=== PATIENT | female | born 1970 | race Caucasian/White ===

== ENCOUNTER 2021-03-26 05:09 | Inpatient (IN) ==
[2021-03-26 05:16] VITALS: BMI 29.0
--- NOTE | 2021-03-26 05:20 | ED.ABDFE ---
HPI Time Seen Time Seen by Provider: 03/26/21 05:19 HPI Comment HPI Comment: PATIENT IS 50YR OLD FEMALE IN ER WITH ABDOMINAL PAIN, NAUSEA AND VOMITING SINCE 20;00PM LAST NIGHT. NO DIARRHEA OR DYSURIA. DENIES COUGH OR CONGESTION. PAIN IS SHARP, 8/10 AND DIFFUSE BUT WORSE LUQ OF ABDOMEN. DENIES FEVER. Complaint Doctors Chief Complaint Comments: ABDOMINAL PAIN, NAUSEA AND VOMITING SINCE 20:00PM LAST NIGHT. Chief Complaint:: PT STATES HER STOMACH HAS BEEN CRAMPING SINCE ABOUT 8PM LASTNIGHT WITH NO RELIF. PT STATES SHE TOOK PEPTO ABOUT 9 WITH NO HELP. SHE STATES SHE BEEN NAUSEOUS WITH NO VOMITING. Self Treatment fo Chief Complaint: PEPTO COVID-19 Coronavirus risk:travel/contact w/high risk person: No Has patient experienced Coronavirus symptoms: No Reviewed Nurses Notes Review: Yes Source History Provided: Patient Mode of arrival Mode of Arrival: Ambulatory Timing Onset of Chief Complaint: 03/25/21 Came on: Suddenly Duration Since Onset: Constant Duration: Hours Location Location: LUQ and Diffuse Severity Severity: Moderate Quality Quality: Sharp Context History of: None Modifying factors Improving Factors: Lying Still Associated signs and symptoms Associated Signs and Symptoms: Nausea and Vomiting PMH PMH Past Medical History: No Past Surgical History: No Family History History of Family Medical Conditions: Yes Family Medical History: Diabetes Mellitus, Cancer, [place] and Hypertension Social History Does patient currently use any type of tobacco product: No Have you used tobacco products in the last 12 months: No Type of Tobacco Use: None Does any household member use tobacco: No Alcohol Use: None Do you use any recreational Drugs:: No Lives With: Spouse Lives Where: Home Infectious screening In the last 2 months have you had wt loss of >10#?: NO Have you had fever, night sweats or hemotysis?: No Have you traveled outside the country in the last 6 months?: No Isolation: Standard ROS Review of Systems Constitutional: No Symptoms Reported, See HPI, Weakness and Fatigue; negative Fever Eyes: No Symptoms Reported and See HPI ENTM: No Symptoms Reported and See HPI; negative Nose Discharge and Nose Congestion Respiratoy: No Symptoms Reported and See HPI; negative Moist Cough, Short of Breath and Wheezing Cardiovascular: No Symptoms Reported and See HPI; negative Chest Pain and Edema Gastrointestinal/Abdominal: No Symptoms Reported and See HPI Genitourinary: No Symptoms Reported, See HPI and Dysuria; negative Frequency and Hematuria Neurological: See HPI, Headache and Weakness; negative Dizziness Musculoskeletal: No Symptoms Reported and See HPI; negative Back Pain and Muscle Pain Integumentary: No Symptoms Reported and See HPI; negative Change in Color, Rash and Juandice Hematologic/Lymphatic: No Symptoms Reported and See HPI; negative Easy Bruising Endocrine: No Symptoms Reported; negative Increased Thirst and Increased Urine Psychiatric: No Symptoms Reported and See HPI All Other Systems: Reviewed and Negative PE Vital Signs Vitals: Temperature 98.8 F Pulse Rate 103 Respiratory Rate 16 Blood Pressure 125/65 O2 Sat by Pulse Oximetry 99 General Limitations: No Limitations and Language Barrier General Appearance: Alert and In No Apparent Distress Head Head Exam: Normal Inspection Eyes Eye exam: Normal Appearance; negative Scleral Icterus and Conjunctival Injection ENT ENT Exam: Normal Exam, Normal Oropharynx, Normal External Ear Exam and TM's Normal Bilaterally Neck Neck Exam: Normal Inspection and Trachea Midline; negative Tenderness Chest Chest Inspection: Normal Inspection and Symmetric Chest Wall Rise; negative Tenderness Respiratory Respiratory Exam: Normal Lung Sounds Bilat; negative Accessory Muscle Use, Chest Wall Tenderness and Respiratory Distress Respiratory Exam: Bilateral: Clear to Auscultation Cardiovascular Cardiovascular Exam: Regular Rate, Normal Rhythm and Normal Heart Sounds; negative Systolic Murmur and Diastolic Murmur Abdominal Exam Abdominal Exam: Normal Inspection, Normal Bowel Sounds and Tenderness Abdominal Tenderness: LUQ, Diffuse and Moderate Rectal Rectal Exam: Deferred Back Back Exam: Normal Inspection; negative (R) CVA Tenderness and (L) CVA Tenderness Extremeties Extremities Exam: Normal Inspection and Normal Capillary Refill; negative Edema External Exam: Female: Deferred : Speculum Exam (Female): Deferred : Bimanual Exam (female): Deferred Neurologic Neurological Exam: Alert and Oriented X3; negative Motor Sensory Deficit Psychiatric Psychiatric Exam: Normal Affect and Normal Mood Skin Skin Exam: Warm, Dry and Intact MDM Differential Diagnosis Differential Diagnosis- Considerations may include:: Bowel Obstruction, Cholcystitis, Cholelethiasis, Constipation, Diverticular disease, Gastritus/PUD, Gastroenteritis, Inflammatory BD, Pancreatitis, Urinary tract infection and Urolithiasis COURSE Treatment Treatment: SEE ORDERS. NS 1L IV BOLUS, ZOFRAN 4MG IV, DEMOROL 25MG IV, AND PEPCID 20MG IVPB IN ER. Reevaluation 1st: Improved Consultation Consultation Comments: DISCUSSED PATIENT WITH DR. PAZ, SURGEON. HE WILL COME TO ER TO SEE PATIENT. Education/Counseling Education/Counseling: Patient Educated On: Diagnosis ROR Labs Reviewed Result Diagrams: 03/26/21 05:45 03/26/21 05:45 Laboratory: WBC 8.9 X10^3/uL (3.6-10.0) 03/26/21 05:45 RBC 4.38 X10^6/uL (3.5-5.4) 03/26/21 05:45 Hgb 13.5 g/dL (12.0-16.0) 03/26/21 05:45 Hct 37.8 % (36.0-47.0) 03/26/21 05:45 MCV 86.3 fL (80.0-100.0) 03/26/21 05:45 MCH 30.7 pg (27.0-34.0) 03/26/21 05:45 MCHC 35.6 g/dL (33.0-35.0) H 03/26/21 05:45 RDW 13.8 % (11.6-16.5) 03/26/21 05:45 Plt Count 300 X10^3/uL (150.0-450.0) 03/26/21 05:45 MPV 8.4 fL (7.4-11.0) 03/26/21 05:45 Neut % (Auto) 77.0 % (42.0-75.0) H 03/26/21 05:45 Lymph % (Auto) 15.5 % (21.0-51.0) L 03/26/21 05:45 [place] % (Auto) 6.6 % (0.0-13.0) 03/26/21 05:45 Eos % (Auto) 0.4 % (0.9-2.9) L 03/26/21 05:45 Baso % (Auto) 0.5 % (0.2-1.0) 03/26/21 05:45 Neut # (Auto) 6.9 x10^3/uL (2.2-4.8) H 03/26/21 05:45 Lymph # (Auto) 1.4 X10^3/uL (1.3-2.9) 03/26/21 05:45 [place] # (Auto) 0.6 x10^3/uL (0.3-0.8) 03/26/21 05:45 Eos # (Auto) 0.0 x10^3/uL (0.0-0.2) 03/26/21 05:45 Baso # (Auto) 0.0 X10^3/uL (0.0-0.1) 03/26/21 05:45 Absolute Nucleated RBC 0.1 /100WBC 03/26/21 05:45 Sodium 137 mmol/L (136-145) 03/26/21 05:45 Corrected Sodium 137 mmol/L (136-145) 03/26/21 05:45 Potassium 3.5 mmol/L (3.5-5.1) 03/26/21 05:45 Chloride 102 mmol/L (98-107) 03/26/21 05:45 Carbon Dioxide 22.4 mmol/L (21-32) 03/26/21 05:45 BUN 12 mg/dL (7-18) 03/26/21 05:45 Creatinine 0.92 mg/dL (0.55-1.02) 03/26/21 05:45 Est GFR (MDRD) Af Amer > 60 (>60) 03/26/21 05:45 Est GFR (MDRD) Non-Af > 60 (>60) 03/26/21 05:45 Glucose 120 mg/dL (65-99) H 03/26/21 05:45 Calcium 9.5 mg/dL (8.5-10.1) 03/26/21 05:45 Corrected Calcium TNP 03/26/21 05:45 Total Bilirubin 0.30 mg/dL (0.2-1.0) 03/26/21 05:45 AST 13 Units/L (15-37) L 03/26/21 05:45 ALT 30 Units/L (12-78) 03/26/21 05:45 Alkaline Phosphatase 84 Units/L (46-116) 03/26/21 05:45 Total Protein 7.1 g/dL (6.4-8.2) 03/26/21 05:45 Albumin 3.5 g/dL (3.4-5.0) 03/26/21 05:45 Globulin 3.6 g/dL (2.5-4.5) 03/26/21 05:45 Albumin/Globulin Ratio 1.0 Ratio (1.1-2.1) L 03/26/21 05:45 Amylase 46 Units/L (25-115) 03/26/21 05:45 Lipase 66 Units/L (73-393) L 03/26/21 05:45 Specimen Type Clean catch urine 03/26/21 07:16 Urine Color Yellow (YELLOW) 03/26/21 07:16 Urine Appearance Clear (CLEAR) 03/26/21 07:16 Urine pH 7.0 (5.0 - 8.0) 03/26/21 07:16 Ur Specific [place] 1.010 (1.000-1.030) 03/26/21 07:16 Urine Protein Negative (NEGATIVE) 03/26/21 07:16 Urine Glucose (UA) Negative (NEGATIVE) 03/26/21 07:16 Urine Ketones Negative (NEGATIVE) 03/26/21 07:16 Urine Occult Blood Negative (NEGATIVE) 03/26/21 07:16 Urine Nitrite Negative (NEGATIVE) 03/26/21 07:16 Urine Bilirubin Negative (NEGATIVE) 03/26/21 07:16 Urine Urobilinogen Normal (NORMAL) 03/26/21 07:16 Ur Leukocyte Esterase Negative (NEGATIVE) 03/26/21 07:16 Influenza Type A Ag Negative-presumptive (NEGATIVE) 03/26/21 06:04 Influenza Type B Ag Negative-presumptive (NEGATIVE) 03/26/21 06:04 SARS CoV-2 RNA Rapid COLLETTE Negative (NEGATIVE) 03/26/21 06:04 Opioid Opioid Risk Tool Age (Shashi box if 16-45): No Total: 0 Total Score Risk Category: Low Risk Copyright: Frandy LEES predicting aberrant behaviors Diagnosis Discharge Problem: Cecal volvulus Abdominal pain Qualifiers: Abdominal location: generalized Qualified Code(s): R10.84 - Generalized abdominal pain Instructions Forms: Precautions for COVID19 [facility] Patient [facility] Social Distancing
[2021-03-26] MEDS ORDERED: NS 1,000 ML IV 1,000 ML IV ONE (05:23)
[2021-03-26] MEDS ORDERED: ZOFRAN INJ 4 MG VIAL IVP ONE ×2 (05:23→07:19)
[2021-03-26] MEDS ORDERED: PEPCID 20 MG IV PREMIX* 20 MG/50 ML BAG IV ONE (05:23)
[2021-03-26] MEDS ORDERED: DEMEROL INJ IVP ONE (05:23)
[2021-03-26] MEDS ORDERED: NS 1,000 ML IV 1,000 ML ONE (05:32)
[2021-03-26] MEDS ORDERED: DEMEROL INJ ONE (05:32)
[2021-03-26] MEDS ORDERED: PEPCID 20 MG IV PREMIX* 50 ML IV ONE ×2 (05:32→13:21)
[2021-03-26] MEDS ORDERED: ZOFRAN INJ 4 MG VIAL ONE ×4 (05:32→13:41)
[2021-03-26 05:54] LABS: BASOPHILS % (AUTO) 0.5 % (0.2-1.0); EOSINOPHILS % (AUTO) 0.4 % (0.9-2.9); HEMATOCRIT 37.8 % (36.0-47.0); HEMOGLOBIN 13.5 g/dL (12.0-16.0); LYMPHOCYTES # (AUTO) 1.4 X10^3/uL (1.3-2.9); LYMPHOCYTES % (AUTO) 15.5 % (21.0-51.0); MEAN CORPUSCULAR HEMOGLOBIN 30.7 pg (27.0-34.0); MEAN CORPUSCULAR HGB CONC 35.6 g/dL (33.0-35.0); MEAN CORPUSCULAR VOLUME 86.3 fL (80.0-100.0); MEAN PLATELET VOLUME 8.4 fL (7.4-11.0); MONOCYTES # (AUTO) 0.6 x10^3/uL (0.3-0.8); MONOCYTES % (AUTO) 6.6 % (0.0-13.0); NEUTROPHILS # (AUTO) 6.9 x10^3/uL (2.2-4.8); PLATELET COUNT 300 X10^3/uL (150.0-450.0); RED BLOOD COUNT 4.38 X10^6/uL (3.5-5.4); RED CELL DISTRIBUTION WIDTH 13.8 % (11.6-16.5); WHITE BLOOD COUNT 8.9 X10^3/uL (3.6-10.0)
[2021-03-26 06:02] LABS: ALANINE AMINOTRANSFERASE 30 Units/L (12-78); ALBUMIN 3.5 g/dL (3.4-5.0); ALKALINE PHOSPHATASE 84 Units/L (46-116); AMYLASE 46 Units/L (25-115); ASPARTATE AMINO TRANSFERASE 13 Units/L (15-37); BLOOD UREA NITROGEN 12 mg/dL (7-18); CALCIUM 9.5 mg/dL (8.5-10.1); CARBON DIOXIDE 22.4 mmol/L (21-32); CHLORIDE 102 mmol/L (98-107); COR NA(FOR HYPERGLY) 137 mmol/L (136-145); CREATININE 0.92 mg/dL (0.55-1.02); LIPASE 66 Units/L (73-393); SODIUM 137 mmol/L (136-145); TOTAL PROTEIN 7.1 g/dL (6.4-8.2); eGFR NON BLACK RACES > 60 (>60)
[2021-03-26] MEDS ORDERED: NS 100 ML IV 100 ML ONE (06:51)
[2021-03-26] MEDS ORDERED: TORADOL 30 MG VIAL IVP ONE (07:19)
[2021-03-26] MEDS ORDERED: TORADOL 30 MG VIAL ONE (07:24)
[2021-03-26 07:27] LABS: BILIRUBIN,URINE NEGATIVE (NEGATIVE); BLOOD/HEMOGLOBIN,URINE NEGATIVE (NEGATIVE); GLUCOSE, URINE NEGATIVE (NEGATIVE); KETONES,URINE NEGATIVE (NEGATIVE); LEUKOCYTE ESTERASE ,URINE NEGATIVE (NEGATIVE); NITRITES,URINE NEGATIVE (NEGATIVE); PROTEIN,URINE NEGATIVE (NEGATIVE); UROBILINOGEN,URINE NORMAL (NORMAL)
--- NOTE | 2021-03-26 07:32 | CT ---
HISTORYABD PAIN/CRAMPING, NAUSEASTUDYABDOMEN/PELVIS WITH CONCOMPARISONNone.TECHNIQUEMultiple axial images of the abdomen and pelvis were obtained from the lung bases to the pubic symphysis after the administration of IV contrast. Dose reduction techniques including Automated Exposure Control (AEC) and adjustment of mA and kV were utilized.FINDINGSThe lung bases are clear. The heart is normal in size. The liver, gallbladder, spleen, pancreas, adrenal glands, and kidneys have a benign appearance.The urinary bladder appears benign. The uterus is present. No large abnormal pelvic mass. Moderate fluid within the endometrial canal is indeterminate given patient age. Enlarged cecum is flipped into the central abdomen with air stool level.The appendix is not well visualized but there is no significant inflammatory change in its expected location. The majority of the colon is decompressed. There is [id number] stool in the distal colon and rectum. Small bowel feces sign of the terminal ileum. Nonobstructive small bowel gas pattern of the remainder of the small bowel. Non-atherosclerotic normal caliber abdominal aorta. The portal vein is patent. No pathologic adenopathy. No free air, free fluid or collection. No acute osseous abnormality.IMPRESSIONFindings consistent with cecal volvulus. Recommend surgical consultation.Small bowel feces sign of the terminal ileum consistent with delayed bowel transit.Moderate fluid within the endometrium is nonspecific given patient age. Correlate for menopausal state and consider ultrasound as clinically warranted.Electronically signed by: Herberth Truong (Mar 26, 2021 07:31:22)
[2021-03-26 07:33] LABS: APPEARANCE,URINE CLEAR (CLEAR); COLOR,URINE YELLOW (YELLOW)
[2021-03-26] MEDS ORDERED: LEVAQUIN PREMIX IV 750 MG 750 MG/150 ML BAG IV SCH (09:00)
[2021-03-26] MEDS ORDERED: ZOFRAN INJ 4 MG VIAL IVP SCH (09:00)
[2021-03-26] MEDS ORDERED: LEVAQUIN PREMIX IV 750 MG 750 MG/150 ML BAG IV ONE (09:16)
[2021-03-26] MEDS ORDERED: D5 NS 1,000 ML IV 1,000 ML IV ONE (09:16)
[2021-03-26] MEDS ORDERED: FLAGYL IV PREMIX 500 MG BAG 500 MG/100 ML BAG IV ONE (09:16)
[2021-03-26] MEDS ORDERED: PROTONIX INJ 40 MG VIAL ONE (09:16)
--- NOTE | 2021-03-26 09:21 | RAD ---
HISTORYPRE OP FOR COLONIC VOLVULUS SURGERYSTUDYCHEST, 1 VIEWCOMPARISONNoneTECHNIQUEAP view of the chestFINDINGSThe cardiac and mediastinal contours are within normal limits. The lungs are clear without focal consolidation or segmental collapse. No pleural effusion or pneumothorax.IMPRESSIONNo acute pulmonary process.Electronically signed by: Herberth Truong (Mar 26, 2021 09:20:12)
[2021-03-26] MEDS: D5 1/2 NS 1,000 ML 1,000 ML IV SCH ×2 (09:58→17:30)
[2021-03-26] MEDS: PROTONIX INJ 40 MG VIAL IVP SCH ×2 (09:58→21:43)
[2021-03-26] MEDS: FLAGYL IV PREMIX 500 MG BAG 500 MG/100 ML BAG IV SCH ×2 (09:58→21:52)
[2021-03-26] MEDS ORDERED: DILAUDID INJ ONE ×2 (10:56→13:20)
[2021-03-26] MEDS: DILAUDID INJ IVP PRN ×2 (11:15→20:40)
[2021-03-26] MEDS ORDERED: POLYMYXIN B SULFATE ONE (13:07)
[2021-03-26] MEDS ORDERED: DECADRON INJ ONE (13:20)
[2021-03-26] MEDS ORDERED: BRIDION ONE (13:20)
[2021-03-26] MEDS ORDERED: LR 1,000 ML IV 1,000 ML IV ONE (13:21)
[2021-03-26] MEDS ORDERED: FENTANYL VIAL INJ 100 mcg ONE (13:21)
[2021-03-26] MEDS ORDERED: ZEMURON 50 MG VIAL ONE (13:21)
[2021-03-26] MEDS ORDERED: OFIRMEV IV 1000 MG VIAL 1,000 MG/100 ML VIAL IV ONE (13:22)
[2021-03-26 13:28] LABS: SERUM PREGNANCY TEST, QUAL NEGATIVE <10 mIU/mL
[2021-03-26] MEDS ORDERED: KETALAR ONE (13:41)
[2021-03-26] MEDS ORDERED: XYLOCAINE 2 % (PLAIN) ONE (13:41)
[2021-03-26] MEDS ORDERED: LACRI-LUBE S.O.P. ONE (13:41)
[2021-03-26] MEDS ORDERED: VERSED ONE (13:41)
[2021-03-26] MEDS ORDERED: DIPRIVAN VIAL ONE (13:41)
[2021-03-26] MEDS ORDERED: ULTANE GAS IN ONE ×2 (13:41→14:31)
[2021-03-26] MEDS ORDERED: DILAUDID INJ IVP PRN ×2 (16:32→16:56)
[2021-03-26] MEDS ORDERED: BENADRYL INJ 50 MG VIAL IVP PRN (16:32)
[2021-03-26] MEDS ORDERED: BARHEMSYS INJ IVP PRN (16:32)
[2021-03-26] MEDS ORDERED: PHENERGAN INJ 25 MG IM PRN (16:32)
[2021-03-26 17:31] LABS: BASOPHILS % (AUTO) 0.1 % (0.2-1.0); HEMATOCRIT 38.3 % (36.0-47.0); HEMOGLOBIN 13.2 g/dL (12.0-16.0); LYMPHOCYTES # (AUTO) 0.7 X10^3/uL (1.3-2.9); LYMPHOCYTES % (AUTO) 4.1 % (21.0-51.0); MEAN CORPUSCULAR HEMOGLOBIN 30.5 pg (27.0-34.0); MEAN CORPUSCULAR HGB CONC 34.5 g/dL (33.0-35.0); MEAN CORPUSCULAR VOLUME 88.6 fL (80.0-100.0); MEAN PLATELET VOLUME 8.2 fL (7.4-11.0); MONOCYTES # (AUTO) 0.4 x10^3/uL (0.3-0.8); MONOCYTES % (AUTO) 2.7 % (0.0-13.0); NEUTROPHILS # (AUTO) 15.5 x10^3/uL (2.2-4.8); NEUTROPHILS % (AUTO) 93.1 % (42.0-75.0); PLATELET COUNT 271 X10^3/uL (150.0-450.0); RED BLOOD COUNT 4.33 X10^6/uL (3.5-5.4); RED CELL DISTRIBUTION WIDTH 13.7 % (11.6-16.5); WHITE BLOOD COUNT 16.7 X10^3/uL (3.6-10.0)
[2021-03-26 17:46] LABS: PLATELET MORPHOLOGY COMMENT NORMAL (NORMAL)
[2021-03-26 17:48] LABS: ALANINE AMINOTRANSFERASE 29 Units/L (12-78); ALBUMIN 3.2 g/dL (3.4-5.0); ALKALINE PHOSPHATASE 83 Units/L (46-116); ASPARTATE AMINO TRANSFERASE 16 Units/L (15-37); BLOOD UREA NITROGEN 9 mg/dL (7-18); CALCIUM 8.5 mg/dL (8.5-10.1); CARBON DIOXIDE 24.9 mmol/L (21-32); CHLORIDE 103 mmol/L (98-107); COR CA(FOR HYPOALB) 9.1 mg/dL (8.5-10.1); COR NA(FOR HYPERGLY) 138 mmol/L (136-145); CREATININE 0.87 mg/dL (0.55-1.02); SODIUM 136 mmol/L (136-145); TOTAL PROTEIN 6.7 g/dL (6.4-8.2); eGFR NON BLACK RACES > 60 (>60)
[2021-03-26] MEDS: MORPHINE SULFATE INJ 4 MG IVP PRN ×2 (19:13→22:18)
[2021-03-26] MEDS: ZOFRAN INJ 4 MG VIAL IVP PRN ×2 (19:13→23:32)
[2021-03-27] MEDS: DILAUDID INJ IVP PRN ×6 (00:53→22:14)
[2021-03-27] MEDS: D5 1/2 NS 1,000 ML 1,000 ML IV SCH ×3 (01:20→16:23)
[2021-03-27] MEDS: FLAGYL IV PREMIX 500 MG BAG 500 MG/100 ML BAG IV SCH ×3 (02:49→11:19)
[2021-03-27] MEDS: MORPHINE SULFATE INJ 4 MG IVP PRN ×2 (02:50→15:57)
[2021-03-27] MEDS: ZOFRAN INJ 4 MG VIAL IVP PRN ×5 (04:17→22:14)
[2021-03-27 05:48] LABS: BASOPHILS % (AUTO) 0.2 % (0.2-1.0); HEMATOCRIT 33.6 % (36.0-47.0); HEMOGLOBIN 11.6 g/dL (12.0-16.0); LYMPHOCYTES # (AUTO) 0.5 X10^3/uL (1.3-2.9); LYMPHOCYTES % (AUTO) 3.9 % (21.0-51.0); MEAN CORPUSCULAR HEMOGLOBIN 30.5 pg (27.0-34.0); MEAN CORPUSCULAR HGB CONC 34.5 g/dL (33.0-35.0); MEAN CORPUSCULAR VOLUME 88.2 fL (80.0-100.0); MEAN PLATELET VOLUME 8.7 fL (7.4-11.0); MONOCYTES # (AUTO) 0.9 x10^3/uL (0.3-0.8); MONOCYTES % (AUTO) 6.9 % (0.0-13.0); PLATELET COUNT 236 X10^3/uL (150.0-450.0); RED BLOOD COUNT 3.81 X10^6/uL (3.5-5.4); RED CELL DISTRIBUTION WIDTH 13.5 % (11.6-16.5); WHITE BLOOD COUNT 13.5 X10^3/uL (3.6-10.0)
[2021-03-27 06:17] LABS: ALANINE AMINOTRANSFERASE 25 Units/L (12-78); ALBUMIN 2.9 g/dL (3.4-5.0); ALKALINE PHOSPHATASE 68 Units/L (46-116); ASPARTATE AMINO TRANSFERASE 16 Units/L (15-37); BLOOD UREA NITROGEN 8 mg/dL (7-18); CALCIUM 8.1 mg/dL (8.5-10.1); CARBON DIOXIDE 25.1 mmol/L (21-32); CHLORIDE 103 mmol/L (98-107); COR NA(FOR HYPERGLY) 136 mmol/L (136-145); CREATININE 0.79 mg/dL (0.55-1.02); SODIUM 135 mmol/L (136-145); TOTAL PROTEIN 6.3 g/dL (6.4-8.2); eGFR NON BLACK RACES > 60 (>60)
[2021-03-27] MEDS ORDERED: LEVAQUIN PREMIX IV 500 MG 500 MG/100 ML BAG IV SCH (09:00)
[2021-03-27] MEDS: LOVENOX INJ 40 MG SYR SC SCH (09:30)
[2021-03-27] MEDS: PROTONIX INJ 40 MG VIAL IVP SCH ×3 (09:30→20:57)
[2021-03-27] MEDS: LEVAQUIN PREMIX IV 750 MG 750 MG/150 ML BAG IV SCH (09:30)
--- NOTE | 2021-03-27 09:45 | DR.PROGNOT ---
Hospital Progress Notes - Progress Note for Day of: Progress Note Date: 03/27/21 - Chief Complaint Chief Complaint: day 1 post op RT colectomy for cecal volvulus .. doing fairly well .. c/o nausea and incisional pain . good urine out put . normal lytes and Hgb . afebrile - Past Medical Family Social History Past Med/Fam/Surg Hx: No changes since H&P Allergies: Allergies aspirin Allergy (Verified 03/26/21 05:16) azithromycin Allergy (Verified 03/26/21 05:16) Penicillins Allergy (Verified 03/26/21 05:16) - Review Of Systems ROS: No change since H&P - Vital Signs Vital Signs: Temperature 97.6 F Pulse Rate [Left Brachial] 103 Pulse Rate 100 Respiratory Rate 20 Blood Pressure [Left Arm] 102/58 Blood Pressure 110/69 O2 Sat by Pulse Oximetry 97 - Physical Exam Oriented: Normal Eyes: Normal Ear: Normal Nose: Normal Throat: Normal Cardiovascular: Normal : Normal GI:Auscultation: Decreased GI: Tenderness: Diffuse Skin: Normal Musculoskeletal: Normal Psychiatric: Normal Mood Description: Calm Speech Pattern: Clear, Appropriate - Laboratory and Diagnostics Result Diagrams: 03/27/21 05:20 03/27/21 05:20 Labs: 03/26/21 14:45 Abdomen Wound Gram Stain - Final 03/26/21 14:45 Abdomen Wound Culture - Preliminary Laboratory WBC 13.5 X10^3/uL (3.6-10.0) H 03/27/21 05:20 RBC 3.81 X10^6/uL (3.5-5.4) 03/27/21 05:20 Hgb 11.6 g/dL (12.0-16.0) L 03/27/21 05:20 Hct 33.6 % (36.0-47.0) L 03/27/21 05:20 MCV 88.2 fL (80.0-100.0) 03/27/21 05:20 MCH 30.5 pg (27.0-34.0) 03/27/21 05:20 MCHC 34.5 g/dL (33.0-35.0) 03/27/21 05:20 RDW 13.5 % (11.6-16.5) 03/27/21 05:20 Plt Count 236 X10^3/uL (150.0-450.0) 03/27/21 05:20 Plt Count Comment Adequate (ADEQUATE) 03/26/21 17:20 MPV 8.7 fL (7.4-11.0) 03/27/21 05:20 Neut % (Auto) 89.0 % (42.0-75.0) H 03/27/21 05:20 Lymph % (Auto) 3.9 % (21.0-51.0) L 03/27/21 05:20 [place] % (Auto) 6.9 % (0.0-13.0) 03/27/21 05:20 Eos % (Auto) 0.0 % (0.9-2.9) L 03/27/21 05:20 Baso % (Auto) 0.2 % (0.2-1.0) 03/27/21 05:20 Neut # (Auto) 12.0 x10^3/uL (2.2-4.8) H 03/27/21 05:20 Lymph # (Auto) 0.5 X10^3/uL (1.3-2.9) L 03/27/21 05:20 [place] # (Auto) 0.9 x10^3/uL (0.3-0.8) H 03/27/21 05:20 Eos # (Auto) 0.0 x10^3/uL (0.0-0.2) 03/27/21 05:20 Baso # (Auto) 0.0 X10^3/uL (0.0-0.1) 03/27/21 05:20 Absolute Nucleated RBC 0.0 /100WBC 03/27/21 05:20 Total Counted 100 03/26/21 17:20 Neutrophils % (Manual) 93 % (39-76) H 03/26/21 17:20 Lymphocytes % (Manual) 6 % (13-43) L 03/26/21 17:20 Monocytes % (Manual) 1 % (4-9) L 03/26/21 17:20 Plt Morphology Comment Normal (NORMAL) 03/26/21 17:20 RBC Morphology Normal (NORMAL) 03/26/21 17:20 Sodium 135 mmol/L (136-145) L 03/27/21 05:20 Corrected Sodium 136 mmol/L (136-145) 03/27/21 05:20 Potassium 4.4 mmol/L (3.5-5.1) 03/27/21 05:20 Chloride 103 mmol/L (98-107) 03/27/21 05:20 Carbon Dioxide 25.1 mmol/L (21-32) 03/27/21 05:20 BUN 8 mg/dL (7-18) 03/27/21 05:20 Creatinine 0.79 mg/dL (0.55-1.02) 03/27/21 05:20 Est GFR (MDRD) Af Amer > 60 (>60) 03/27/21 05:20 Est GFR (MDRD) Non-Af > 60 (>60) 03/27/21 05:20 Glucose 150 mg/dL (65-99) H 03/27/21 05:20 Calcium 8.1 mg/dL (8.5-10.1) L 03/27/21 05:20 Corrected Calcium 9.0 mg/dL (8.5-10.1) 03/27/21 05:20 Total Bilirubin 0.30 mg/dL (0.2-1.0) 03/27/21 05:20 AST 16 Units/L (15-37) 03/27/21 05:20 ALT 25 Units/L (12-78) 03/27/21 05:20 Alkaline Phosphatase 68 Units/L (46-116) 03/27/21 05:20 Total Protein 6.3 g/dL (6.4-8.2) L 03/27/21 05:20 Albumin 2.9 g/dL (3.4-5.0) L 03/27/21 05:20 Globulin 3.4 g/dL (2.5-4.5) 03/27/21 05:20 Albumin/Globulin Ratio 0.9 Ratio (1.1-2.1) L 03/27/21 05:20 Amylase 46 Units/L (25-115) 03/26/21 05:45 Lipase 66 Units/L (73-393) L 03/26/21 05:45 HCG, Qual Negative <10 mIU/mL 03/26/21 05:45 Specimen Type Clean catch urine 03/26/21 07:16 Urine Color Yellow (YELLOW) 03/26/21 07:16 Urine Appearance Clear (CLEAR) 03/26/21 07:16 Urine pH 7.0 (5.0 - 8.0) 03/26/21 07:16 Ur Specific [place] 1.010 (1.000-1.030) 03/26/21 07:16 Urine Protein Negative (NEGATIVE) 03/26/21 07:16 Urine Glucose (UA) Negative (NEGATIVE) 03/26/21 07:16 Urine Ketones Negative (NEGATIVE) 03/26/21 07:16 Urine Occult Blood Negative (NEGATIVE) 03/26/21 07:16 Urine Nitrite Negative (NEGATIVE) 03/26/21 07:16 Urine Bilirubin Negative (NEGATIVE) 03/26/21 07:16 Urine Urobilinogen Normal (NORMAL) 03/26/21 07:16 Ur Leukocyte Esterase Negative (NEGATIVE) 03/26/21 07:16 Influenza Type A Ag Negative-presumptive (NEGATIVE) 03/26/21 06:04 Influenza Type B Ag Negative-presumptive (NEGATIVE) 03/26/21 06:04 SARS CoV-2 RNA Rapid COLLETTE Negative (NEGATIVE) 03/26/21 06:04 Tissue Pathology To follow 03/26/21 14:45 - Assessment and Plan 1: cecal volvulus . s/p RT colectomy . same PO care , DVT prophylaxis , IV ABT , OOB with binder . to D/C NGT .. keep NPO , may have ice chips . - Problem Patient Problems: Patient Problems Abdominal pain (Acute) R10.9 Cecal volvulus (Acute) K56.2
[2021-03-27] MEDS: FLAGYL TAB 500 MG PO SCH ×3 (11:52→20:57)
[2021-03-28] MEDS: D5 1/2 NS 1,000 ML 1,000 ML IV SCH ×3 (00:28→16:01)
[2021-03-28] MEDS: DILAUDID INJ IVP PRN (03:11)
[2021-03-28] MEDS: FLAGYL TAB 500 MG PO SCH ×4 (03:11→20:58)
[2021-03-28] MEDS: ZOFRAN INJ 4 MG VIAL IVP PRN (03:11)
[2021-03-28 06:06] LABS: BASOPHILS % (AUTO) 0.2 % (0.2-1.0); EOSINOPHILS % (AUTO) 0.1 % (0.9-2.9); HEMATOCRIT 29.7 % (36.0-47.0); HEMOGLOBIN 10.6 g/dL (12.0-16.0); LYMPHOCYTES # (AUTO) 1.1 X10^3/uL (1.3-2.9); LYMPHOCYTES % (AUTO) 11.4 % (21.0-51.0); MEAN CORPUSCULAR HEMOGLOBIN 31.3 pg (27.0-34.0); MEAN CORPUSCULAR HGB CONC 35.6 g/dL (33.0-35.0); MEAN CORPUSCULAR VOLUME 87.9 fL (80.0-100.0); MEAN PLATELET VOLUME 8.7 fL (7.4-11.0); MONOCYTES # (AUTO) 0.9 x10^3/uL (0.3-0.8); MONOCYTES % (AUTO) 9.3 % (0.0-13.0); NEUTROPHILS # (AUTO) 7.7 x10^3/uL (2.2-4.8); PLATELET COUNT 218 X10^3/uL (150.0-450.0); RED BLOOD COUNT 3.37 X10^6/uL (3.5-5.4); RED CELL DISTRIBUTION WIDTH 13.8 % (11.6-16.5); WHITE BLOOD COUNT 9.7 X10^3/uL (3.6-10.0)
[2021-03-28 06:25] LABS: ALANINE AMINOTRANSFERASE 24 Units/L (12-78); ALBUMIN 2.7 g/dL (3.4-5.0); ALKALINE PHOSPHATASE 62 Units/L (46-116); ASPARTATE AMINO TRANSFERASE 17 Units/L (15-37); BLOOD UREA NITROGEN 4 mg/dL (7-18); CALCIUM 7.8 mg/dL (8.5-10.1); CARBON DIOXIDE 25.4 mmol/L (21-32); CHLORIDE 104 mmol/L (98-107); COR CA(FOR HYPOALB) 8.8 mg/dL (8.5-10.1); CREATININE 0.79 mg/dL (0.55-1.02); SODIUM 138 mmol/L (136-145); eGFR NON BLACK RACES > 60 (>60)
[2021-03-28] MEDS ORDERED: KLOR-CON PO PRN (06:35)
[2021-03-28] MEDS ORDERED: MICRO K EXTEN CAP 10 MEQ PO PRN (06:35)
[2021-03-28] MEDS ORDERED: POTASSIUM CHL 60 MEQ/NS 0.45% 500 ML IV PRN (06:35)
[2021-03-28] MEDS ORDERED: K-DUR TAB 20 MEQ PO PRN (06:35)
[2021-03-28] MEDS ORDERED: POTASSIUM CHL 40 MEQ/NS 0.45% 500 ML IV PRN (06:35)
[2021-03-28] MEDS ORDERED: POTASSIUM CHLORIDE LIQ 20 MEQ UDC PO PRN (06:35)
[2021-03-28] MEDS ORDERED: K-RIDER 10 MEQ/NS 100 ML 10 MEQ/100 ML BAG IV PRN (06:35)
[2021-03-28] MEDS: PROTONIX INJ 40 MG VIAL IVP SCH ×3 (09:43→20:58)
[2021-03-28] MEDS: LEVAQUIN PREMIX IV 750 MG 750 MG/150 ML BAG IV SCH (09:43)
[2021-03-28] MEDS: LOVENOX INJ 40 MG SYR SC SCH (09:50)
[2021-03-28] MEDS: MAGNESIUM SULFATE 1 GRAM/100 mL PREMIX 2 G/200 ML BAG IV SCH ×2 (11:26→13:04)
[2021-03-28] MEDS: MORPHINE SULFATE INJ 4 MG IVP PRN (20:59)
[2021-03-29] MEDS: D5 1/2 NS 1,000 ML 1,000 ML IV SCH ×3 (00:22→13:12)
[2021-03-29] MEDS: FLAGYL TAB 500 MG PO SCH ×4 (03:34→21:07)
[2021-03-29] MEDS: MORPHINE SULFATE INJ 4 MG IVP PRN (03:34)
[2021-03-29 05:47] LABS: BASOPHILS % (AUTO) 0.3 % (0.2-1.0); EOSINOPHILS % (AUTO) 0.5 % (0.9-2.9); HEMATOCRIT 29.7 % (36.0-47.0); HEMOGLOBIN 10.5 g/dL (12.0-16.0); LYMPHOCYTES # (AUTO) 1.5 X10^3/uL (1.3-2.9); LYMPHOCYTES % (AUTO) 19.7 % (21.0-51.0); MEAN CORPUSCULAR HEMOGLOBIN 31.2 pg (27.0-34.0); MEAN CORPUSCULAR HGB CONC 35.4 g/dL (33.0-35.0); MEAN CORPUSCULAR VOLUME 88.1 fL (80.0-100.0); MEAN PLATELET VOLUME 8.3 fL (7.4-11.0); MONOCYTES # (AUTO) 0.8 x10^3/uL (0.3-0.8); MONOCYTES % (AUTO) 10.2 % (0.0-13.0); NEUTROPHILS # (AUTO) 5.4 x10^3/uL (2.2-4.8); NEUTROPHILS % (AUTO) 69.3 % (42.0-75.0); PLATELET COUNT 246 X10^3/uL (150.0-450.0); RED BLOOD COUNT 3.37 X10^6/uL (3.5-5.4); RED CELL DISTRIBUTION WIDTH 13.4 % (11.6-16.5); WHITE BLOOD COUNT 7.7 X10^3/uL (3.6-10.0)
[2021-03-29 06:02] LABS: ALANINE AMINOTRANSFERASE 28 Units/L (12-78); ALBUMIN 2.6 g/dL (3.4-5.0); ALKALINE PHOSPHATASE 70 Units/L (46-116); ASPARTATE AMINO TRANSFERASE 18 Units/L (15-37); BLOOD UREA NITROGEN 4 mg/dL (7-18); CARBON DIOXIDE 26.4 mmol/L (21-32); CHLORIDE 107 mmol/L (98-107); COR CA(FOR HYPOALB) 9.1 mg/dL (8.5-10.1); CREATININE 0.73 mg/dL (0.55-1.02); SODIUM 140 mmol/L (136-145); TOTAL PROTEIN 6.1 g/dL (6.4-8.2); eGFR NON BLACK RACES > 60 (>60)
[2021-03-29] MEDS ORDERED: TYLENOL 325 MG TAB PO PRN (08:02)
[2021-03-29] MEDS: LEVAQUIN PREMIX IV 750 MG 750 MG/150 ML BAG IV SCH (08:28)
[2021-03-29] MEDS: PROTONIX INJ 40 MG VIAL IVP SCH ×3 (08:28→21:08)
[2021-03-29] MEDS: LOVENOX INJ 40 MG SYR SC SCH (08:36)
[2021-03-29] MEDS: NORCO 5/325 MG TAB PO PRN ×2 (12:11→21:06)
--- NOTE | 2021-03-29 16:26 | DR.PROGNOT ---
Hospital Progress Notes - Progress Note for Day of: Progress Note Date: 03/28/21 - Chief Complaint Chief Complaint: day 2 post op RT colectomy for cecal volvulus .. doing fairly well .. c/o nausea and incisional pain . good urine out put . normal lytes and Hgb . afebrile - Past Medical Family Social History Past Med/Fam/Surg Hx: No changes since H&P Allergies: Allergies aspirin Allergy (Verified 03/26/21 05:16) azithromycin Allergy (Verified 03/26/21 05:16) Penicillins Allergy (Verified 03/26/21 05:16) - Review Of Systems ROS: No change since H&P - Vital Signs Vital Signs: Temperature 98.6 F Pulse Rate [Left Brachial] 98 Pulse Rate 100 Respiratory Rate 18 Blood Pressure [Left Arm] 103/61 Blood Pressure 110/69 O2 Sat by Pulse Oximetry 100 - Physical Exam Oriented: Normal Eyes: Normal Ear: Normal Nose: Normal Throat: Normal Cardiovascular: Normal : Normal GI:Auscultation: Decreased GI: Tenderness: Diffuse Skin: Normal Musculoskeletal: Normal Psychiatric: Normal Mood Description: Calm Speech Pattern: Clear, Appropriate - Laboratory and Diagnostics Result Diagrams: 03/29/21 05:17 03/29/21 05:17 Labs: 03/26/21 14:45 Abdomen Wound Gram Stain - Final 03/26/21 14:45 Abdomen Wound Culture - Final Laboratory WBC 7.7 X10^3/uL (3.6-10.0) 03/29/21 05:17 RBC 3.37 X10^6/uL (3.5-5.4) L 03/29/21 05:17 Hgb 10.5 g/dL (12.0-16.0) L 03/29/21 05:17 Hct 29.7 % (36.0-47.0) L 03/29/21 05:17 MCV 88.1 fL (80.0-100.0) 03/29/21 05:17 MCH 31.2 pg (27.0-34.0) 03/29/21 05:17 MCHC 35.4 g/dL (33.0-35.0) H 03/29/21 05:17 RDW 13.4 % (11.6-16.5) 03/29/21 05:17 Plt Count 246 X10^3/uL (150.0-450.0) 03/29/21 05:17 Plt Count Comment Adequate (ADEQUATE) 03/26/21 17:20 MPV 8.3 fL (7.4-11.0) 03/29/21 05:17 Neut % (Auto) 69.3 % (42.0-75.0) 03/29/21 05:17 Lymph % (Auto) 19.7 % (21.0-51.0) L 03/29/21 05:17 [place] % (Auto) 10.2 % (0.0-13.0) 03/29/21 05:17 Eos % (Auto) 0.5 % (0.9-2.9) L 03/29/21 05:17 Baso % (Auto) 0.3 % (0.2-1.0) 03/29/21 05:17 Neut # (Auto) 5.4 x10^3/uL (2.2-4.8) H 03/29/21 05:17 Lymph # (Auto) 1.5 X10^3/uL (1.3-2.9) 03/29/21 05:17 [place] # (Auto) 0.8 x10^3/uL (0.3-0.8) 03/29/21 05:17 Eos # (Auto) 0.0 x10^3/uL (0.0-0.2) 03/29/21 05:17 Baso # (Auto) 0.0 X10^3/uL (0.0-0.1) 03/29/21 05:17 Absolute Nucleated RBC 0.1 /100WBC 03/29/21 05:17 Total Counted 100 03/26/21 17:20 Neutrophils % (Manual) 93 % (39-76) H 03/26/21 17:20 Lymphocytes % (Manual) 6 % (13-43) L 03/26/21 17:20 Monocytes % (Manual) 1 % (4-9) L 03/26/21 17:20 Plt Morphology Comment Normal (NORMAL) 03/26/21 17:20 RBC Morphology Normal (NORMAL) 03/26/21 17:20 Sodium 140 mmol/L (136-145) 03/29/21 05:17 Corrected Sodium TNP 03/29/21 05:17 Potassium 3.5 mmol/L (3.5-5.1) 03/29/21 05:17 Chloride 107 mmol/L (98-107) 03/29/21 05:17 Carbon Dioxide 26.4 mmol/L (21-32) 03/29/21 05:17 BUN 4 mg/dL (7-18) L 03/29/21 05:17 Creatinine 0.73 mg/dL (0.55-1.02) 03/29/21 05:17 Est GFR (MDRD) Af Amer > 60 (>60) 03/29/21 05:17 Est GFR (MDRD) Non-Af > 60 (>60) 03/29/21 05:17 Glucose 109 mg/dL (65-99) H 03/29/21 05:17 Calcium 8.0 mg/dL (8.5-10.1) L 03/29/21 05:17 Corrected Calcium 9.1 mg/dL (8.5-10.1) 03/29/21 05:17 Magnesium 1.8 mg/dL (1.7-2.9) 03/28/21 05:12 Total Bilirubin 0.40 mg/dL (0.2-1.0) 03/29/21 05:17 AST 18 Units/L (15-37) 03/29/21 05:17 ALT 28 Units/L (12-78) 03/29/21 05:17 Alkaline Phosphatase 70 Units/L (46-116) 03/29/21 05:17 Total Protein 6.1 g/dL (6.4-8.2) L 03/29/21 05:17 Albumin 2.6 g/dL (3.4-5.0) L 03/29/21 05:17 Globulin 3.5 g/dL (2.5-4.5) 03/29/21 05:17 Albumin/Globulin Ratio 0.7 Ratio (1.1-2.1) L 03/29/21 05:17 Amylase 46 Units/L (25-115) 03/26/21 05:45 Lipase 66 Units/L (73-393) L 03/26/21 05:45 HCG, Qual Negative <10 mIU/mL 03/26/21 05:45 Specimen Type Clean catch urine 03/26/21 07:16 Urine Color Yellow (YELLOW) 03/26/21 07:16 Urine Appearance Clear (CLEAR) 03/26/21 07:16 Urine pH 7.0 (5.0 - 8.0) 03/26/21 07:16 Ur Specific [place] 1.010 (1.000-1.030) 03/26/21 07:16 Urine Protein Negative (NEGATIVE) 03/26/21 07:16 Urine Glucose (UA) Negative (NEGATIVE) 03/26/21 07:16 Urine Ketones Negative (NEGATIVE) 03/26/21 07:16 Urine Occult Blood Negative (NEGATIVE) 03/26/21 07:16 Urine Nitrite Negative (NEGATIVE) 03/26/21 07:16 Urine Bilirubin Negative (NEGATIVE) 03/26/21 07:16 Urine Urobilinogen Normal (NORMAL) 03/26/21 07:16 Ur Leukocyte Esterase Negative (NEGATIVE) 03/26/21 07:16 Influenza Type A Ag Negative-presumptive (NEGATIVE) 03/26/21 06:04 Influenza Type B Ag Negative-presumptive (NEGATIVE) 03/26/21 06:04 SARS CoV-2 RNA Rapid COLLETTE Negative (NEGATIVE) 03/26/21 06:04 Tissue Pathology To follow 03/26/21 14:45 - Assessment and Plan 1: cecal volvulus . s/p RT colectomy . same PO care , DVT prophylaxis , IV ABT , OOB with binder . .. keep NPO , may have ice chips . - Problem Patient Problems: Patient Problems Abdominal pain (Acute) R10.9 Cecal volvulus (Acute) K56.2
--- NOTE | 2021-03-29 16:28 | DR.PROGNOT ---
Hospital Progress Notes - Progress Note for Day of: Progress Note Date: 03/29/21 - Chief Complaint Chief Complaint: day 3 post op RT colectomy for cecal volvulus .. doing fairly well . no BM yet .... less abdominal pain . normal lytes and Hgb . afebrile . DARRYL was removed . - Past Medical Family Social History Past Med/Fam/Surg Hx: No changes since H&P Allergies: Allergies aspirin Allergy (Verified 03/26/21 05:16) azithromycin Allergy (Verified 03/26/21 05:16) Penicillins Allergy (Verified 03/26/21 05:16) - Review Of Systems ROS: No change since H&P - Vital Signs Vital Signs: Temperature 98.6 F Pulse Rate [Left Brachial] 98 Pulse Rate 100 Respiratory Rate 18 Blood Pressure [Left Arm] 103/61 Blood Pressure 110/69 O2 Sat by Pulse Oximetry 100 - Physical Exam Oriented: Normal Eyes: Normal Ear: Normal Nose: Normal Throat: Normal Cardiovascular: Normal : Normal GI:Auscultation: Decreased GI: Tenderness: Diffuse Skin: Normal Musculoskeletal: Normal Psychiatric: Normal Mood Description: Calm Speech Pattern: Clear, Appropriate - Laboratory and Diagnostics Result Diagrams: 03/29/21 05:17 03/29/21 05:17 Labs: 03/26/21 14:45 Abdomen Wound Gram Stain - Final 03/26/21 14:45 Abdomen Wound Culture - Final Laboratory WBC 7.7 X10^3/uL (3.6-10.0) 03/29/21 05:17 RBC 3.37 X10^6/uL (3.5-5.4) L 03/29/21 05:17 Hgb 10.5 g/dL (12.0-16.0) L 03/29/21 05:17 Hct 29.7 % (36.0-47.0) L 03/29/21 05:17 MCV 88.1 fL (80.0-100.0) 03/29/21 05:17 MCH 31.2 pg (27.0-34.0) 03/29/21 05:17 MCHC 35.4 g/dL (33.0-35.0) H 03/29/21 05:17 RDW 13.4 % (11.6-16.5) 03/29/21 05:17 Plt Count 246 X10^3/uL (150.0-450.0) 03/29/21 05:17 Plt Count Comment Adequate (ADEQUATE) 03/26/21 17:20 MPV 8.3 fL (7.4-11.0) 03/29/21 05:17 Neut % (Auto) 69.3 % (42.0-75.0) 03/29/21 05:17 Lymph % (Auto) 19.7 % (21.0-51.0) L 03/29/21 05:17 Floyd % (Auto) 10.2 % (0.0-13.0) 03/29/21 05:17 Eos % (Auto) 0.5 % (0.9-2.9) L 03/29/21 05:17 Baso % (Auto) 0.3 % (0.2-1.0) 03/29/21 05:17 Neut # (Auto) 5.4 x10^3/uL (2.2-4.8) H 03/29/21 05:17 Lymph # (Auto) 1.5 X10^3/uL (1.3-2.9) 03/29/21 05:17 Floyd # (Auto) 0.8 x10^3/uL (0.3-0.8) 03/29/21 05:17 Eos # (Auto) 0.0 x10^3/uL (0.0-0.2) 03/29/21 05:17 Baso # (Auto) 0.0 X10^3/uL (0.0-0.1) 03/29/21 05:17 Absolute Nucleated RBC 0.1 /100WBC 03/29/21 05:17 Total Counted 100 03/26/21 17:20 Neutrophils % (Manual) 93 % (39-76) H 03/26/21 17:20 Lymphocytes % (Manual) 6 % (13-43) L 03/26/21 17:20 Monocytes % (Manual) 1 % (4-9) L 03/26/21 17:20 Plt Morphology Comment Normal (NORMAL) 03/26/21 17:20 RBC Morphology Normal (NORMAL) 03/26/21 17:20 Sodium 140 mmol/L (136-145) 03/29/21 05:17 Corrected Sodium TNP 03/29/21 05:17 Potassium 3.5 mmol/L (3.5-5.1) 03/29/21 05:17 Chloride 107 mmol/L (98-107) 03/29/21 05:17 Carbon Dioxide 26.4 mmol/L (21-32) 03/29/21 05:17 BUN 4 mg/dL (7-18) L 03/29/21 05:17 Creatinine 0.73 mg/dL (0.55-1.02) 03/29/21 05:17 Est GFR (MDRD) Af Amer > 60 (>60) 03/29/21 05:17 Est GFR (MDRD) Non-Af > 60 (>60) 03/29/21 05:17 Glucose 109 mg/dL (65-99) H 03/29/21 05:17 Calcium 8.0 mg/dL (8.5-10.1) L 03/29/21 05:17 Corrected Calcium 9.1 mg/dL (8.5-10.1) 03/29/21 05:17 Magnesium 1.8 mg/dL (1.7-2.9) 03/28/21 05:12 Total Bilirubin 0.40 mg/dL (0.2-1.0) 03/29/21 05:17 AST 18 Units/L (15-37) 03/29/21 05:17 ALT 28 Units/L (12-78) 03/29/21 05:17 Alkaline Phosphatase 70 Units/L (46-116) 03/29/21 05:17 Total Protein 6.1 g/dL (6.4-8.2) L 03/29/21 05:17 Albumin 2.6 g/dL (3.4-5.0) L 03/29/21 05:17 Globulin 3.5 g/dL (2.5-4.5) 03/29/21 05:17 Albumin/Globulin Ratio 0.7 Ratio (1.1-2.1) L 03/29/21 05:17 Amylase 46 Units/L (25-115) 03/26/21 05:45 Lipase 66 Units/L (73-393) L 03/26/21 05:45 HCG, Qual Negative <10 mIU/mL 03/26/21 05:45 Specimen Type Clean catch urine 03/26/21 07:16 Urine Color Yellow (YELLOW) 03/26/21 07:16 Urine Appearance Clear (CLEAR) 03/26/21 07:16 Urine pH 7.0 (5.0 - 8.0) 03/26/21 07:16 Ur Specific [place] 1.010 (1.000-1.030) 03/26/21 07:16 Urine Protein Negative (NEGATIVE) 03/26/21 07:16 Urine Glucose (UA) Negative (NEGATIVE) 03/26/21 07:16 Urine Ketones Negative (NEGATIVE) 03/26/21 07:16 Urine Occult Blood Negative (NEGATIVE) 03/26/21 07:16 Urine Nitrite Negative (NEGATIVE) 03/26/21 07:16 Urine Bilirubin Negative (NEGATIVE) 03/26/21 07:16 Urine Urobilinogen Normal (NORMAL) 03/26/21 07:16 Ur Leukocyte Esterase Negative (NEGATIVE) 03/26/21 07:16 Influenza Type A Ag Negative-presumptive (NEGATIVE) 03/26/21 06:04 Influenza Type B Ag Negative-presumptive (NEGATIVE) 03/26/21 06:04 SARS CoV-2 RNA Rapid COLLETTE Negative (NEGATIVE) 03/26/21 06:04 Tissue Pathology To follow 03/26/21 14:45 - Assessment and Plan 1: cecal volvulus . s/p RT colectomy . same PO care , DVT prophylaxis , IV ABT , OOB with binder . on liquid diet ,. possible D/C in AM. - Problem Patient Problems: Patient Problems Abdominal pain (Acute) R10.9 Cecal volvulus (Acute) K56.2
[2021-03-30] MEDS: FLAGYL TAB 500 MG PO SCH ×2 (02:17→09:02)
[2021-03-30] MEDS: D5 1/2 NS 1,000 ML 1,000 ML IV SCH (02:22)
[2021-03-30 07:46] VITALS: BP 121/71
[2021-03-30] MEDS: LEVAQUIN PREMIX IV 750 MG 750 MG/150 ML BAG IV SCH (09:02)
[2021-03-30] MEDS: LOVENOX INJ 40 MG SYR SC SCH (09:02)
[2021-03-30] MEDS: PROTONIX INJ 40 MG VIAL IVP SCH (09:03)
== END 2021-03-30 11:33 | disposition home or self-care (01) | DRG 331 ==
LOC: U 05:09 → ER 05:09 → OBSVTOIN 08:47 → U 10:55 → MED/SURG 16:44
PROVIDERS: ADMIT Surgery; ATTEND Surgery
DX: K56.2 Volvulus; Z20.822 Contact with and (suspected) exposure to COVID-19; R11.2 Nausea with vomiting, unspecified; R10.84 Generalized abdominal pain; R10.12 Left upper quadrant pain; K66.0 Peritoneal adhesions (postprocedural) (postinfection)